=== PATIENT | male | born 1995 | race African-American/Black ===

== ENCOUNTER 2020-02-14 10:20 | Emergency (ER) | payer OTHER ==
[~2020-02-14] VITALS: Ht 180.3 cm; Wt 65.0 kg
[2020-02-14] MEDS ORDERED: IBUPROFEN 600 MG TABLET PO ONE (11:00)
[2020-02-14] MEDS ORDERED: IBUPROFEN 600 MG TABLET ONE (11:26)
--- NOTE | 2020-02-14 11:42 | NUR ---
PT SITTING IN BED, ON PHONE, NO SIGNS OF DISTRESS. CALL LIGHT WITHIN REACH, WILL CONTINUE TO MONITOR.
[2020-02-14 12:09] VITALS: BP 117/79
== END 2020-02-14 12:21 | disposition home or self-care (01) ==
LOC: ED 12:15
DX: S93.491A Sprain of other ligament of right ankle, initial encounter (principal); X58.XXXA Exposure to other specified factors, initial encounter; Y93.89 Activity, other specified; Y92.89 Other specified places as the place of occurrence of the external cause; Y99.8 Other external cause status
CPT/HCPCS: 29515; 99283